=== PATIENT | male | born 1975 | race Caucasian/White ===

== ENCOUNTER 2019-12-16 23:38 | Inpatient (IN) | payer MEDICAID ==
[~2019-12-16] VITALS: Ht 170.2 cm; Wt 82.5 kg
[~2019-12-16 23:38] MED LIST: DIVA-78 PO; FLUO-191 PO; OLAN7.5T2 PO
[2019-12-17] MEDS ORDERED: OLAN10TA3 PO (01:07)
[2019-12-17] MEDS ORDERED: FLUO-191 PO (01:07)
[2019-12-17] MEDS ORDERED: BUSP15 PO (01:07)
[2019-12-17 01:13] LABS: BASOPHILS % (AUTO) 0.3 % (0.0-2.0); EOSINOPHILS % (AUTO) 0.2 % (1.0-6.0); HEMATOCRIT 44.1 % (41-53); HEMOGLOBIN 14.7 g/dL (13.5-17.5); LYMPHOCYTES # (AUTO) 2.2 K/uL (1.0-4.8); LYMPHOCYTES % (AUTO) 16.6 % (22.0-44.0); MEAN CORPUSCULAR HEMOGLOBIN 31.9 pg (26.0-34.0); MEAN CORPUSCULAR HGB CONC 33.3 G/dL (31.0-37.0); MEAN CORPUSCULAR VOLUME 96 fL (80-100); MONOCYTES # (AUTO) 0.7 K/uL (0.1-1.0); MONOCYTES % (AUTO) 5.5 % (2.0-9.0); NEUTROPHILS # (AUTO) 10.4 K/uL (1.8-7.7); NEUTROPHILS % (AUTO) 77.4 % (40.0-70.0); PLATELET COUNT (AUTO) 198 K/uL (150-450); RED CELL DISTRIBUTION WIDTH 13.7 % (11.5-14.5)
[2019-12-17 01:19] LABS: ANION GAP 12 mmol/L (8-16); CALCIUM, TOTAL 9.9 mg/dL (8.8-10.5); CARBON DIOXIDE 26 mmol/L (22-29); CHLORIDE 106 mmol/L (98-107); CREATININE 1.05 mg/dL (0.60-1.30); GLOMERULAR FILTR. RATE CALC > 60 mL/min (>60); GLUCOSE,RANDOM 117 mg/dL (70-110); POTASSIUM 3.9 mmol/L (3.5-5.1); SODIUM SERUM 144 mmol/L (136-145); UREA NITROGEN, BLOOD 24 mg/dL (7-18)
[2019-12-17 01:24] LABS: ALANINE AMINOTRANSFERASE 52 U/L (12-78); ALBUMIN 4.3 g/dL (3.4-5.0); ALKALINE PHOSPHATASE 68 U/L (46-116); ASPARTATE AMINOTRANSFERASE 27 U/L (15-37); BILIRUBIN,TOTAL 0.7 mg/dL (0.1-1.0); TOTAL PROTEIN, SERUM 8.4 g/dL (6.4-8.2)
[2019-12-17 02:59] LABS: FERRITIN 183 ng/mL (26-388); LACTATE DEHYDROGENASE 202 U/L (85-227)
[2019-12-17 03:09] LABS: C-REACTIVE PROTEIN QUANT < 0.05 mg/dL (0.00-0.30)
[2019-12-17 04:00] LABS: APPEARANCE,URINE CLEAR (CLEAR); BILIRUBIN,URINE NEGATIVE (NEGATIVE); GLUCOSE, URINE (UA) NEGATIVE (NEGATIVE); KETONES,URINE NEGATIVE (NEGATIVE); LEUKOCYTE ESTERASE ,URINE NEGATIVE (NEGATIVE); NITRATE,URINE NEGATIVE (NEGATIVE); OCCULT BLOOD,URINE SMALL (NEGATIVE); PH,URINE 6.5 (5.0-8.0); PROTEIN,URINE POS 1+ (NEGATIVE); UROBILINOGEN,URINE 0.2 mg/dL (<=1.0)
[2019-12-17] MEDS ORDERED: ONDANSETRON HCL 4 MG/2 ML VIAL IVP PRN ×2 (04:00→04:30)
[2019-12-17] MEDS ORDERED: 0.9% SODIUM CHLORIDE 10 ML SYRINGE IVP PRN ×2 (04:00→04:30)
[2019-12-17 04:10] LABS: BACTERIA,URINE Few /HPF (None Seen); WBC,URINE 0-2 /HPF (0-5)
[2019-12-17 04:11] LABS: SQUAMOUS EPITHELIAL CELL,UR Rare /LPF (None Seen)
[2019-12-17 04:13] LABS: AMPHET/METH SCREEN,URINE POSITIVE (NEGATIVE); BARBITURATE SCREEN, URINE NEGATIVE (NEGATIVE); BENZODIAZEPINES SCREEN,URINE NEGATIVE (NEGATIVE); CANNABINOID SCREEN,URINE NEGATIVE (NEGATIVE); COCAINE SCREEN,URINE NEGATIVE (NEGATIVE); METHADONE SCREEN, URINE NEGATIVE (NEGATIVE); OPIATE SCREEN,URINE NEGATIVE (NEGATIVE); PHENCYCLIDINE SCREEN,URINE NEGATIVE (NEGATIVE)
[2019-12-17 04:19] LABS: INFLUENZA TYPE A NEGATIVE FOR TYPE A (NEGATIVE); INFLUENZA TYPE B NEGATIVE FOR TYPE B (NEGATIVE)
[2019-12-17 05:33] VITALS: BP 150/105
[2019-12-17 05:39] VITALS: BP 150/105
[2019-12-17] MEDS ORDERED: IBUPROFEN 400 MG TABLET PO PRN (05:45)
[2019-12-17 07:09] VITALS: BP 171/93
[2019-12-17] MEDS: DOCUSATE SODIUM 100 MG CAPSULE PO SCH ×2 (08:23→20:58)
[2019-12-17] MEDS ORDERED: CloNIDine HCL 0.1 MG TABLET PO PRN (11:00)
[2019-12-17 11:43] VITALS: BP 151/94
[2019-12-17 15:48] VITALS: BP 157/92
[2019-12-17 20:30] VITALS: BP 152/100
[2019-12-18 05:27] VITALS: BP 125/83
[2019-12-18 08:14] LABS: ANION GAP 14 mmol/L (8-16); CALCIUM, TOTAL 9.5 mg/dL (8.8-10.5); CARBON DIOXIDE 22 mmol/L (22-29); CHLORIDE 106 mmol/L (98-107); CREATININE 0.91 mg/dL (0.60-1.30); GLOMERULAR FILTR. RATE CALC > 60 mL/min (>60); GLUCOSE,RANDOM 85 mg/dL (70-110); POTASSIUM 3.7 mmol/L (3.5-5.1); SODIUM SERUM 142 mmol/L (136-145); UREA NITROGEN, BLOOD 34 mg/dL (7-18)
[2019-12-18 08:24] VITALS: BP 119/81
[2019-12-18 08:31] LABS: BASOPHILS % (AUTO) 0.7 % (0.0-2.0); EOSINOPHILS % (AUTO) 3.4 % (1.0-6.0); HEMATOCRIT 44.1 % (41-53); HEMOGLOBIN 14.7 g/dL (13.5-17.5); LYMPHOCYTES # (AUTO) 3.1 K/uL (1.0-4.8); LYMPHOCYTES % (AUTO) 37.9 % (22.0-44.0); MEAN CORPUSCULAR HEMOGLOBIN 32.3 pg (26.0-34.0); MEAN CORPUSCULAR HGB CONC 33.3 G/dL (31.0-37.0); MEAN CORPUSCULAR VOLUME 97 fL (80-100); MONOCYTES # (AUTO) 0.7 K/uL (0.1-1.0); MONOCYTES % (AUTO) 8.3 % (2.0-9.0); NEUTROPHILS # (AUTO) 4.1 K/uL (1.8-7.7); NEUTROPHILS % (AUTO) 49.7 % (40.0-70.0); PLATELET COUNT (AUTO) 174 K/uL (150-450); RED BLOOD CELL COUNT(AUTO) 4.55 MIL/uL (4.50-5.90); RED CELL DISTRIBUTION WIDTH 13.8 % (11.5-14.5)
[2019-12-18] MEDS: DOCUSATE SODIUM 100 MG CAPSULE PO SCH ×2 (09:00→20:38)
[2019-12-18 11:00] VITALS: BP 125/72
[2019-12-18] MEDS: OLANZapine 7.5 MG TABLET PO SCH ×2 (12:25→20:38)
[2019-12-18] MEDS: BusPIRone HCL 15 MG TABLET PO SCH ×2 (12:25→20:38)
[2019-12-18] MEDS: FLUoxetine HCL 20 MG CAPSULE PO SCH (12:25)
[2019-12-18 16:26] VITALS: BP 109/76
[2019-12-18 19:30] VITALS: BP 113/75
[2019-12-18 23:45] VITALS: BP 104/66
[2019-12-19 06:00] VITALS: BP 101/71
[2019-12-19 08:13] VITALS: BP 109/74
[2019-12-19] MEDS: OLANZapine 7.5 MG TABLET PO SCH ×2 (08:16→21:24)
[2019-12-19] MEDS: BusPIRone HCL 15 MG TABLET PO SCH ×2 (08:16→21:24)
[2019-12-19] MEDS: FLUoxetine HCL 20 MG CAPSULE PO SCH (08:16)
[2019-12-19] MEDS: DOCUSATE SODIUM 100 MG CAPSULE PO SCH ×2 (08:17→21:00)
[2019-12-19 11:12] VITALS: BP 101/82
[2019-12-19 15:02] VITALS: BP 112/79
[2019-12-19 20:15] VITALS: BP 103/66
[2019-12-19 23:00] VITALS: BP 114/62
[2019-12-20 05:00] VITALS: BP 118/63
[2019-12-20 08:18] VITALS: BP 112/76
[2019-12-20] MEDS: DOCUSATE SODIUM 100 MG CAPSULE PO SCH (09:00)
[2019-12-20] MEDS: OLANZapine 7.5 MG TABLET PO SCH (09:17)
[2019-12-20] MEDS: FLUoxetine HCL 20 MG CAPSULE PO SCH (09:17)
[2019-12-20] MEDS: BusPIRone HCL 15 MG TABLET PO SCH (09:17)
[2019-12-20 11:11] VITALS: BP 115/70
== END 2019-12-20 11:22 | DRG 145 ==
LOC: EMS 23:38 → 5N 12-17 03:30 → 6N 12-18 19:00
PROVIDERS: ADMIT Internal Medicine; ATTEND Internal Medicine
DX: R05 Cough (principal); R45.851 Suicidal ideations; R65.10 Systemic inflammatory response syndrome (SIRS) of non-infectious origin without acute organ dysfunction; F20.9 Schizophrenia, unspecified; D72.829 Elevated white blood cell count, unspecified; Z20.828 Contact with and (suspected) exposure to other viral communicable diseases; F17.210 Nicotine dependence, cigarettes, uncomplicated; R11.2 Nausea with vomiting, unspecified; F32.9 Major depressive disorder, single episode, unspecified; F19.10 Other psychoactive substance abuse, uncomplicated; Z91.5 Personal history of self-harm; Z91.19 Patient's noncompliance with other medical treatment and regimen; F15.90 Other stimulant use, unspecified, uncomplicated; F41.9 Anxiety disorder, unspecified; Z88.8 Allergy status to other drugs, medicaments and biological substances; Z91.013 Allergy to seafood
CPT/HCPCS: 82728; 83036; 83615; 85379; 86140; 87040; 87635; 87804; 93005; G0480

== ENCOUNTER 2019-12-20 11:55 | Inpatient (IN) | payer MEDICAID ==
[~2019-12-20] VITALS: Ht 170.2 cm; Wt 83.9 kg
[~2019-12-20 11:55] MED LIST changes: +BUSP15 PO; -DIVA-78 PO; +OLAN10TA3 PO; -OLAN7.5T2 PO
[2019-12-20] MEDS ORDERED: ZOLPIDEM TARTRATE 10 MG TABLET PO PRN (12:45)
[2019-12-20] MEDS ORDERED: QUEtiapine FUMARATE 100 MG TABLET PO PRN (12:45)
[2019-12-20 12:59] VITALS: BP 117/90
[2019-12-20 16:30] VITALS: BP 125/80
[2019-12-20] MEDS: OLANZapine 7.5 MG TABLET PO SCH (21:10)
[2019-12-20] MEDS: BusPIRone HCL 15 MG TABLET PO SCH (21:10)
[2019-12-21 08:30] VITALS: BP 135/72
[2019-12-21] MEDS: BusPIRone HCL 15 MG TABLET PO SCH ×2 (10:14→20:37)
[2019-12-21] MEDS: FLUoxetine HCL 20 MG CAPSULE PO SCH (10:14)
[2019-12-21] MEDS: OLANZapine 7.5 MG TABLET PO SCH ×2 (10:15→20:37)
[2019-12-21 17:30] VITALS: BP 124/73
[2019-12-22] MEDS: FLUoxetine HCL 20 MG CAPSULE PO SCH (08:52)
[2019-12-22] MEDS: BusPIRone HCL 15 MG TABLET PO SCH ×2 (08:52→20:31)
[2019-12-22] MEDS: OLANZapine 7.5 MG TABLET PO SCH ×2 (08:52→20:31)
[2019-12-22 09:17] VITALS: BP 120/72
[2019-12-22 16:47] VITALS: BP 115/67
[2019-12-23] MEDS: BusPIRone HCL 15 MG TABLET PO SCH ×2 (09:47→20:49)
[2019-12-23] MEDS: OLANZapine 7.5 MG TABLET PO SCH ×2 (09:47→20:49)
[2019-12-23] MEDS: FLUoxetine HCL 20 MG CAPSULE PO SCH (09:47)
[2019-12-23 10:16] VITALS: BP 119/83
[2019-12-23 16:26] VITALS: BP 123/56
[2019-12-24] MEDS: BusPIRone HCL 15 MG TABLET PO SCH ×2 (08:55→20:26)
[2019-12-24] MEDS: FLUoxetine HCL 20 MG CAPSULE PO SCH (08:55)
[2019-12-24] MEDS: OLANZapine 7.5 MG TABLET PO SCH ×2 (08:56→20:27)
[2019-12-24 11:59] VITALS: BP 125/79
[2019-12-24 16:38] VITALS: BP 124/77
[2019-12-25] MEDS: FLUoxetine HCL 20 MG CAPSULE PO SCH (08:30)
[2019-12-25] MEDS: BusPIRone HCL 15 MG TABLET PO SCH ×2 (08:31→20:20)
[2019-12-25] MEDS: OLANZapine 7.5 MG TABLET PO SCH ×2 (08:31→20:20)
[2019-12-25 08:56] VITALS: BP 121/80
[2019-12-25] MEDS ORDERED: MAGNESIUM HYDROXIDE SUSPENSION 30 ML UDCUP PO PRN (11:00)
[2019-12-25] MEDS ORDERED: CloNIDine HCL 0.1 MG TABLET PO PRN (11:00)
[2019-12-25] MEDS ORDERED: ALBUTEROL SULFATE HFA 90 MCG/PUFF 8 GM INHALER IH PRN (11:00)
[2019-12-25] MEDS ORDERED: ACETAMINOPHEN 325 MG TABLET PO PRN (11:00)
[2019-12-25] MEDS ORDERED: GuaiFENesin/D-METHORPHAN [SUGAR-FREE] 200-20MG/10 ML SYRUP UDCUP PO PRN (11:00)
[2019-12-25] MEDS ORDERED: LOPERAMIDE HCL 2 MG CAPSULE PO PRN (11:00)
[2019-12-25] MEDS ORDERED: PETROLATUM,WHITE 28 GM JELLY TP PRN (11:00)
[2019-12-25] MEDS ORDERED: DOCUSATE SODIUM 100 MG CAPSULE PO PRN (11:00)
[2019-12-25] MEDS ORDERED: ONDANSETRON HCL 4 MG TABLET PO PRN (11:00)
[2019-12-25] MEDS: IBUPROFEN 400 MG TABLET PO PRN (11:49)
[2019-12-25] MEDS: LORazepam 2 MG TABLET PO PRN (15:49)
[2019-12-25 16:07] VITALS: BP 111/60
[2019-12-26] MEDS: LORazepam 2 MG TABLET PO PRN ×3 (06:19→19:22)
[2019-12-26 06:20] VITALS: BP 120/80
[2019-12-26 08:58] VITALS: BP 114/71
[2019-12-26] MEDS: IBUPROFEN 400 MG TABLET PO PRN ×2 (09:04→19:23)
[2019-12-26] MEDS: BusPIRone HCL 15 MG TABLET PO SCH ×2 (09:05→20:25)
[2019-12-26] MEDS: OLANZapine 7.5 MG TABLET PO SCH ×2 (09:05→20:25)
[2019-12-26] MEDS: FLUoxetine HCL 20 MG CAPSULE PO SCH (09:05)
[2019-12-26] MEDS: NICOTINE 14 MG/24 HOUR PATCH TD PRN (15:11)
[2019-12-26 16:37] VITALS: BP 114/76
[2019-12-27 08:15] VITALS: BP 127/76
[2019-12-27] MEDS: OLANZapine 7.5 MG TABLET PO SCH ×2 (08:17→20:02)
[2019-12-27] MEDS: FLUoxetine HCL 20 MG CAPSULE PO SCH (08:17)
[2019-12-27] MEDS: BusPIRone HCL 15 MG TABLET PO SCH ×2 (08:17→20:02)
[2019-12-27] MEDS: LORazepam 2 MG TABLET PO PRN ×3 (08:18→17:04)
[2019-12-27] MEDS: IBUPROFEN 400 MG TABLET PO PRN (08:18)
[2019-12-27] MEDS: NICOTINE 14 MG/24 HOUR PATCH TD PRN (08:54)
[2019-12-27 16:30] VITALS: BP 118/74
[2019-12-28] MEDS: LORazepam 2 MG TABLET PO PRN ×2 (04:29→08:41)
[2019-12-28 04:30] VITALS: BP 132/87
[2019-12-28] MEDS: BusPIRone HCL 15 MG TABLET PO SCH (08:28)
[2019-12-28] MEDS: FLUoxetine HCL 20 MG CAPSULE PO SCH (08:28)
[2019-12-28] MEDS: OLANZapine 7.5 MG TABLET PO SCH (08:28)
[2019-12-28 08:40] VITALS: BP 113/84
[2019-12-28] MEDS: NICOTINE 14 MG/24 HOUR PATCH TD PRN (09:02)
[2019-12-28] MEDS ORDERED: OLAN15TA2 PO (10:48)
[2019-12-28] MEDS ORDERED: FLUO40CA7 PO (10:48)
[2019-12-28 12:56] VITALS: BP 132/76
[2019-12-28] MEDS: IBUPROFEN 400 MG TABLET PO PRN (12:56)
== END 2019-12-28 14:24 | disposition home or self-care (01) | DRG 885 ==
LOC: 3EI 11:55
PROVIDERS: ADMIT Psychiatry & Neurology Child & Adolescent Psychiatry; ATTEND Psychiatry & Neurology Child & Adolescent Psychiatry
DX: F25.1 Schizoaffective disorder, depressive type (principal); R45.851 Suicidal ideations; F31.9 Bipolar disorder, unspecified; F10.10 Alcohol abuse, uncomplicated; F41.1 Generalized anxiety disorder; K21.9 Gastro-esophageal reflux disease without esophagitis; F41.9 Anxiety disorder, unspecified; Z59.0 Homelessness
CPT/HCPCS: 87081